=== PATIENT | female | born 1985 | race Caucasian/White ===

== ENCOUNTER 2019-12-30 08:55 | Emergency (ER) | payer OTHER, SELFPAY ==
--- NOTE | ~2019-12-30 | CT_ITS ---
EXAMINATION: CT cervical spine wo con DATE: 12/30/2019 09:54 INDICATION: Acute onset severe neck pain TECHNIQUE: Computed tomography (CT) of the cervical spine was performed without intravenous contrast. The dose-length product (DLP) was 384.35 mGy-cm. Automated exposure control and iterative reconstruc tion technique were employed. COMPARISON: None FINDINGS: There is straightening of the cervical spine which can be positional or due to muscular spa sm. There is no fracture, dislocation, or subluxation. The vertebral body heights, alignment, interve rtebral disc spaces are normal. The odontoid is intact. The prevertebral soft tissues are normal. The re are greater than normal number of nonpathologically enlarged cervical lymph nodes. IMPRESSION: 1. No acute osseous abnormality. 2. Greater than normal number of nonpathologically enlarged cervical lymph nodes, possibly reactive. Reviewed, dictated and finalized at location B. IMPRESSION: 1. No acute osseous abnormality. 2. Greater than normal number of nonpathologically enlarged cervical lymph node s, possibly reactive.
[2019-12-30 09:14] VITALS: BP 162/100; PULSE 85; RESP 18; TEMP 36.5; O2SAT 98
--- NOTE | 2019-12-30 09:27 | ED.NECK ---
HPI - Neck Pain/Injury General Chief Complaint: Neck Pain/Injury Stated Complaint: NECK POPPED PAIN Time Seen by Provider: 12/30/19 09:27 Source: patient Mode of arrival: ambulatory Limitations: no limitations History of Present Illness HPI Narrative: 34-year-old woman comes in today complaining of severe left-sided neck pain that started this morning after she woke. She states that she stretched an arched her back and she felt a pop and developed severe pain. She states she has pain when she moves her left arm especially and when she moves her neck. She denies any numbness, tingling, weakness, incontinence, lower extremity symptoms and prior injury or surgery. complaint: neck pain Onset (ago): hour(s) (3) Place: home Radiation: left lateral Severity: severe Quality: sharp Duration: constant Relieving factors: none Exacerbating factors: movement of extremity and movement of neck Context: turning/bending Treatments prior to arrival: acetaminophen Related Data Allergies Allergy/AdvReac Type Severity Reaction Status Date / Time No Known Allergies Allergy Verified 12/30/19 09:14 Review of Systems Constitutional: Constitutional: Denies chills and Denies fever(s) Eyes: Eyes: Denies change in vision and Denies photophobia ENT: Denies dysphagia, Denies nasal congestion and Denies sore throat Cardiovascular: Cardiovascular: Denies chest pain and Denies radiating jaw, neck or arm pain Respiratory: Respiratory: Denies cough and Denies dyspnea Gastrointestinal: Gastrointestinal: Denies abdominal pain, Denies diarrhea and Denies vomiting Genitourinary: Genitourinary: Denies nocturia, Denies dysuria and Denies urinary incontinence Musculoskeletal: Musculoskeletal: Denies arthralgias and Denies joint swelling Neurologic: Denies vertigo, Denies dizziness and Denies syncope Endocrine: Endocrine: Denies polydipsia and Denies polyuria Hematologic/Lymphatic: Hematologic/Lymphatic: Denies easy bleeding and Denies easy bruising Allergic/Immunologic: Allergic/Immunologic: Denies lip swelling and Denies wheezing PMFSH Surgical History Surgical History H/O section H/O tubal ligation Social History Social History Smoking status: Never smoker Substance use: never Living arrangements: with family Additional occupation/education comments: [employer] Exam HENMT: Head: normal to inspection Ears: external ears normal, TM's normal bilaterally and EAC's normal Face and sinus: normal facial exam Mouth: Yes moist mucous membranes Throat: posterior oropharynx normal Other: Mod-severe acute distress Eyes: Conjunctivae: conjunctivae normal Pupils: Equal, round and reactive pupils present EOM: EOMs intact bilaterally Neck: Neck: normal visual inspection and no lymphadenopathy Other: Tenderness with palpation of the belly of the left trapezius and its cervical insertion. There is mild midline tenderness. Patient will not voluntarily move her neck. No abnormal contours, swelling or erythema. 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 Distal neurovascular exam is intact. Extrem: General: normal to inspection and no clubbing, cyanosis or edema Psych: Appearance: grossly normal and well kempt Mental Status: mental status grossly normal Affect: Anxious affect present Attitude: cooperative Thought content: Yes Normal thought content present Course Vital Signs Vi
[2019-12-30] MEDS: KETOROLAC (*BKC) 60 MG/2 ML VIAL IM (09:45)
[2019-12-30 10:32] VITALS: BP 127/86; PULSE 83; RESP 20; TEMP 36.4; O2SAT 99
== END 2019-12-30 10:36 | disposition home or self-care (01) ==
PROVIDERS: Emergency Provider Emergency Medicine; PCP Family Medicine
DX: S16.1XXA Strain of muscle, fascia and tendon at neck level, initial encounter (principal); X50.9XXA Other and unspecified overexertion or strenuous movements or postures, initial encounter
CPT/HCPCS: 72125; 96372; 99283; 99284; A9270; J1885

== ENCOUNTER 2021-12-03 03:40 | Observation (INO) | payer OTHER, SELFPAY ==
[2021-12-03] VITALS (9 sets, daily range): BP systolic 107–139; BP diastolic 67–99; PULSE 64–100; RESP 16–20; TEMP 35.5–36.7; O2SAT 96–100
--- NOTE | ~2021-12-03 | CT_ITS ---
EXAMINATION: CT soft tissue neck w con DATE: 12/03/2021 04:39 INDICATION: Facial pain, possible dental abscess, recent wisdom tooth extraction TECHNIQUE: Computed tomography (CT) of the neck was performed with 75 cc of Omnipaque 350 intravenous contrast. The dose-length product (DLP) was 667.57 mGy-cm. Automated exposure control and iterative reconstruction technique were employed. COMPARISON: None FINDINGS: There is a small amount of mildly high attenuation fluid in the right sequins slinger, right par apharyngeal, and right submandibular spaces. No definite abscess is identified. There is mild to mode rate mass effect on the airway in the oropharynx and hypopharynx. There is mild enlargement of the ri ght submandibular gland. The visualized osseous structures are unremarkable. There is mild dependent atelectasis of the lungs. IMPRESSION: 1. Mildly high attenuation fluid in the right sequins slinger, parapharyngeal, and submandibular spaces wi thout discrete abscess identified. Findings could reflect phlegmon or other inflammatory change relat ed to recent wisdom tooth extraction. Recommend close monitoring due to mild to moderate mass effect on the airway. These findings and recommendations were communicated to the Emergency Department at 0703 hours on 11/21 by the [employer] Radiologist. Reviewed, dictated and finalized at location A. IMPRESSION: 1. Mildly high attenuation fluid in the right sequins slinger, parapharyngeal, and s ubmandibular spaces without discrete abscess identified. Findings could reflect phlegmon or other inflammatory change related to recent wisdom tooth extractio n. Recommend close monitoring due to mild to moderate mass effect on the airway . These findings and recommendations were communicated to the Emergency Departmen t at 0703 hours on 12/03/2021 by the [employer] Radiologist.
--- NOTE | 2021-12-03 03:49 | ED.DENTAL ---
HPI - Dental/Oral General Chief complaint: Upper Respiratory Infection <Rafa Olson MD - Last Filed: 12/06/21 10:17> Stated complaint: PAIN <Rafa Olson MD - Last Filed: 12/06/21 10:17> Time Seen by Provider: 12/03/21 07:20 <Rafa Olson MD - Last Filed: 12/06/21 10:17> Source: patient and RN notes reviewed <Rafa Olson MD - Last Filed: 12/06/21 10:17> Mode of arrival: ambulatory <Rafa Olson MD - Last Filed: 12/06/21 10:17> Limitations: no limitations <Rafa Olson MD - Last Filed: 12/06/21 10:17> History of Present Illness MD Complaint: tooth pain <Rafa Olson MD - Last Filed: 12/06/21 10:17> Onset (ago): day(s) (1) <Rafa Olson MD - Last Filed: 12/06/21 10:17> Duration: constant <Rafa Olson MD - Last Filed: 12/06/21 10:17> Severity: severe <Rafa Olson MD - Last Filed: 12/06/21 10:17> Relieving factors: nothing <Rafa Olson MD - Last Filed: 12/06/21 10:17> Exacerbating factors: chewing, drinking fluids and swallowing <Rafa Olson MD - Last Filed: 12/06/21 10:17> Context: other ( recent extraction) <Rafa Olson MD - Last Filed: 12/06/21 10:17> Associated symptoms: gum swelling, pain with swallowing and sore throat <Rafa Olson MD - Last Filed: 12/06/21 10:17> Treatment prior to arrival: other ( amoxicillin 2 doses) <Rafa Olson MD - Last Filed: 12/06/21 10:17> Related Data Allergies/adverse reactions: Allergies Allergy/AdvReac Type Severity Reaction Status Date / Time No Known Allergies Allergy Verified 12/03/21 03:44 <Rafa Olson MD - Last Filed: 12/06/21 10:17> Review of Systems Review of Systems: All systems reviewed & are unremarkable except as noted in HPI and below <Rafa Olson MD - Last Filed: 12/06/21 10:17> PMFSH Surgical History Surgical History: Surgical History H/O section H/O tubal ligation <Rafa Olson MD - Last Filed: 12/06/21 10:17> Social History Social History: Social History Smoking status: Never smoker Second hand tobacco smoke exposure: No Alcohol intake: never Substance use: never Substance use type: does not use Additional occupation/education comments: [employer] Gender identity (if verbalized by the patient): Female Sexual Orientation (if Verbalized by the Patient): Straight or Heterosexual Spiritual care concerns: No <Rafa Olson MD - Last Filed: 12/06/21 10:17> Exam Const: General: no acute distress, alert and ill appearing acutely <Rafa Olson MD - Last Filed: 12/06/21 10:17> Nutritional Appearance: well nourished <Rafa Olson MD - Last Filed: 12/06/21 10:17> Orientation/consciousness: patient oriented x3 <Rafa Olson MD - Last Filed: 12/06/21 10:17> Limitations: no limitations <Rafa Olson MD - Last Filed: 12/06/21 10:17> HENMT: Head: normal to inspection, normocephalic and atraumatic <Rafa Olson MD - Last Filed: 12/06/21 10:17> Ears: external ears normal <Rafa Olson MD - Last Filed: 12/06/21 10:17> General nose exam: Normal external nose present <Rafa Olson MD - Last Filed: 12/06/21 10:17> Mouth: Yes moist mucous membranes abnormal and Yes trismus <Rafa Olson MD - Last Filed: 12/06/21 10:17> Throat: posterior oropharynx abnormal edema (right) and erythema, uvula laterally displaced to the right and uvular edema <Rafa Olson MD - Last Filed: 12/06/21 10:17> Eyes: Conjunctivae: conjunctivae normal <MD Esvin Knight Last Filed: 12/06/21 10:17> Pupils: Equal, round and reactive pupils present <Rafa Olson MD - Last Filed: 12/06/21 10:17> EOM: EOMs intact bilaterally <Rafa Olson MD - Last Filed: 12/06/21 10:17> Neck: Neck: normal visual inspection and no lymphadenopathy <Rafa Olson MD - Last
[2021-12-03 04:07] LABS: Basophils Absolute Auto 0.04 K/mm3 (0.00-0.10); Basophils Percent Auto 0.3 % (0.0-1.0); Eosinophils Absolute Auto 0.07 K/mm3 (0.02-0.50); Eosinophils Percent Auto 0.6 % (1.0-6.0); Hematocrit 36.5 % (35.0-49.0); Hemoglobin 12.5 g/dL (12.0-15.0); Immature Granulocyte Absolute 0.03 K/mm3 (0.00-0.00); Immature Granulocyte Percent A 0.2 % (0.0-0.0); Lymphocytes Absolute Auto 1.84 K/mm3 (1.10-4.50); Lymphocytes Percent Auto 14.7 % (18.0-42.0); Mean Corpuscular HGB Conc 34.2 g/dL (32.0-36.0); Mean Corpuscular Hemoglobin 29.7 pg (27.0-31.0); Mean Corpuscular Volume 86.7 fL (78.0-102.0); Mean Platelet Volume 10.9 fl (9.2-11.8); Monocytes Absolute Auto 0.63 K/mm3 (0.10-0.90); Neutrophils Absolute Auto 9.9 K/mm3 (1.7-7.2); Neutrophils Percent Auto 79.2 % (50.0-70.0); Platelet Count Result 198 K/mm3 (150-420); Red Blood Count 4.21 M/mm3 (4.20-5.40); Red Cell Distribution Width 12.8 % (11.6-14.4); White Blood Count 12.6 K/mm3 (4.8-10.8)
[2021-12-03] MEDS: KETOROLAC 15 MG/ML VIAL (*BKC) IV PUSH (04:17)
[2021-12-03 04:18] LABS: SPREG INTERNAL CONTROL Positive; Serum Qual hCG Negative
[2021-12-03 04:24] LABS: Alanine Aminotransferase 16 U/L (14-59); Albumin Level 3.6 g/dL (3.4-5.0); Alkaline Phosphatase 93 U/L (46-116); Anion Gap 11 mmol/L (8-16); Aspartate Amino Transferase 11 U/L (15-37); Bilirubin,Total 0.5 mg/dL (0.00-1.00); Blood Urea Nitrogen 14 mg/dL (7-18); Calcium 8.8 mg/dL (8.5-10.1); Carbon Dioxide 22 mmol/L (21-32); Chloride 104 mmol/L (98-108); Estimated CRCL calculation 112 ml/min; Estimated Glomerular Filt Rate > 60; Glucose 107 mg/dL (70-99); Osmolality Calculated 284 mOsm/kg (285-295); Potassium 3.6 mmol/L (3.5-5.1); Sodium 137 mmol/L (136-145); Total Protein 7.4 g/dL (6.4-8.2)
--- NOTE | 2021-12-03 04:30 | PC.NURSE ---
PT IN CT AT THIS TIME, SIG OTHER AT BEDSIDE
[2021-12-03] MEDS: AMPICILLIN SULB 3 GM/NS 100 ML 3 GM/100 ML VIAL IVPB (05:44)
--- NOTE | 2021-12-03 05:56 | PC.NURSE ---
PT IS RESTING ON STRETCHER WITH SIG OTHER AT BEDSIDE. IV MEDICATION INFUSING ORDERED WITHOUT DIFFICULTY. PT CONTINUES TO AWAIT CT RESULTS. UNABLE TO CHART MEDICATION ADMINISTRATION AT THIS TIME DUE TO COMPUTER ERROR. WILL CONTINUE TO MONITOR.
--- NOTE | 2021-12-03 06:36 | PC.NURSE ---
PT IS RESTING ON STRETCHER IN EXAM ROOM AT THIS TIME. NAD NOTED. PT CONTINUES TO AWAIT CT RESULTS. SIG OTHER AT BEDSIDE. WILL CONTINUE TO MONITOR.
--- NOTE | 2021-12-03 07:04 | PC.NURSE ---
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 HE HAS CALLED TO CHECK STATUS. PT UP TO RR WITHOUT DISTRESS. WARM BLANKET PROVIDED. VSS PER MONITOR. NAD NOTED. SIG OTHER AT BEDSIDE. REPORT TO TERE HOWARD.
--- NOTE | 2021-12-03 07:50 | PC.NURSE ---
0740 calls placed for ENT [facility] WILL CALL BACK
[2021-12-03] MEDS: fentaNYL CITRATE INJ (*CRX) 100 MCG/2 ML VIAL 50 MCG IV PUSH (07:55)
[2021-12-03] MEDS: methylPREDNISolone SOD SUCC 125 MG VIAL (08:55)
[2021-12-03] MEDS: ONDANSETRON INJ 4 MG/2 ML VIAL IV PUSH ×2 (08:58→18:39)
[2021-12-03] MEDS: methylPREDNISolone SOD SUCC 40 MG VIAL 80 MG IV PUSH ×3 (12:34→17:59)
[2021-12-03] MEDS: HYDROcodone/acetaminophen (*CRX) 10-325 MG TABLET 1 TAB PO ×2 (14:05→20:17)
[2021-12-03] MEDS: LORazepam INJ (*CRX) 2 MG/ML VIAL 0.5 MG IV PUSH (14:07)
[2021-12-03] MEDS: CLINDAMYCIN 600 MG/D5W 50 ML 600 MG/50 ML PIGGYBACK 100 MG IVPB ×2 (14:20→21:14)
--- NOTE | 2021-12-03 14:35 | PC.NURSE ---
Pt admitted to room 202 from the ER. Admitted for abcessed right wisdom tooth. VSS. Right side of pt face and neck are swollen and painful. RN reviewed the visitor policy, call light system and TV control with pt.
[2021-12-03] MEDS: traZODone HCL 50 MG TABLET PO (21:14)
--- NOTE | 2021-12-03 23:45 | PC.NURSE ---
Pt education done on pain management. Medications such as the Hydrocodone were discussed on the use and risks w/taking an opioid. Pt verbalized understanding on the medication topic. Factors that causes the pain were also discussed. Factors including her recent wisdom tooth removal and infection present. Goals on managing the pain w/the pain medication and also relaxation techniques were discussed to which pt verbalized understanding.
--- NOTE | 2021-12-04 00:56 | PM.SD2 ---
Same Day Admit/Disch: HPI History of Present Illness Chief complaint: PAIN Narrative: Raisa Broderick is a 36 year old female that presented to our emergency department with complaints of mild pain. Patient does not have any significant medical history. According to patient she had her right lower wisdom tooth extracted on 11/29/2021. Patient has been experience pain since yesterday. She was started on Augmentin yesterday. While in ED patient was given Unasyn and Toradol with little relief she is being admitted today for pain control. Vital signs 124/76, 64, 17, 97.5, 96% on room air WBCs 12.6, hemoglobin 12.5, hematocrit 36.5, platelets 198, sodium 137, potassium 3.6, BUN 14, creatinine 0.60, glucose 107, total bili 0.5, AST 11, ALT 16, CT of the neck indicates Mildly high attenuation fluid in the right citrix administrator, parapharyngeal, and submandibular spaces. Patient will discharge today and follow-up with her dentist after completion of her antibiotic. Patient pain is better controlled PMFSH Surgical History Surgical History H/O section H/O tubal ligation Social History Social History Smoking status: Never smoker Second hand tobacco smoke exposure: No Alcohol intake: never Substance use: never Substance use type: does not use Additional occupation/education comments: [employer] Gender identity (if verbalized by the patient): Female Sexual Orientation (if Verbalized by the Patient): Straight or Heterosexual Spiritual care concerns: No Same Day Admit/Disch: Med Pre-admit Medications Home Medications Medication Instructions Recorded Confirmed Type hydrocodone 5 mg-acetaminophen 325 1 tablet PO Q6H PRN pain #15 tabs 12/30/19 12/03/21 Rx mg tablet ([place]) amoxicillin 500 mg capsule 500 mg PO TID 12/03/21 12/03/21 History amoxicillin 500 mg-potassium 1 tablet PO TID 10 days #30 tabs 12/04/21 Rx clavulanate 125 mg tablet (Augmentin) ibuprofen 800 mg tablet 800 mg PO Q6H PRN pain #60 tabs 12/04/21 Rx Exam Narrative: GENERAL: This is a well-nourished, well-developed patient, in no apparent distress. HEAD: normocephalic, atraumatic. EYES: PERRL. Sclera clear/white. Vision is grossly intact. EARS: External ears normal, auditory canals clear and without drainage, TMs normal without perforation. Hearing grossly intact. NOSE: External nose normal with no obvious nasal discharge, nares without redness, no rhinorrhea. THROAT: Edema with erythema to the submandibular NECK: Neck supple, non-tender without lymphadenopathy, masses or thyromegaly. CARDIOVASCULAR: Regular rate and rhythm without murmurs, gallops, or rubs. RESPIRATORY: Clear to auscultation. Breath sounds equal bilaterally. No wheezes, rales, or rhonchi. GASTROINTESTINAL: Abdomen soft, non-tender, nondistended. Bowel sounds are active. No hepato-splenomegaly, or palpable masses. No guarding. SKIN: warm, intact with no suspicious lesions or rash, good texture and turgor. NEURO: awake, alert, and oriented to person, place and time. There were no obvious focal neurologic abnormalities. Steady gait EXTREMITIES: Normal range of motion. No edema. No calf tenderness. Negative Homans sign bilaterally. BACK: Nontender without deformity or crepitance. No flank tenderness. DS: Data Data Completed and Pending Labs on day of discharge: Labs from last 24 hours 12/03/21 12/03/21 12/03/21 04:04 04:04 04:04 WBC 12.6 H RBC 4.21 Hgb 12.5 Hct 36.5 MCV 86.7 MCH 29.7 MCHC 34.2 RDW 12.8 Plt Count 198 MPV 10.9 Immature Gran % (Auto) 0.2 H Neut % (Auto) 79.2 H Lymph % (Auto) 14.7 L [place] % (Auto) 5.0 Eos % (Auto) 0.6 L Baso % (Auto) 0.3 Lymph # (Auto) 1.84 [place] # (Auto) 0.63 Eos # (Auto) 0.07 Baso # (Auto) 0.04 Abs Immat Gran (auto) 0.03 H Absolute Neuts (auto) 9.9 H Absolut
--- NOTE | 2021-12-04 05:10 | PC.NURSE ---
Spoke with Darling Conroy PROPULSION MACHINERY SERVICE ENGINEER to clarify strep screen POC measurement order. Clarification order received.
[2021-12-04 06:12] LABS: Strep Group A RT-PCR Negative (Negative)
[2021-12-04] MEDS: CLINDAMYCIN 600 MG/D5W 50 ML 600 MG/50 ML PIGGYBACK 100 MG IVPB (06:12)
[2021-12-04] MEDS: HYDROcodone/acetaminophen (*CRX) 10-325 MG TABLET 1 TAB PO (06:13)
[2021-12-04 08:00] VITALS: BP 114/63; PULSE 69; RESP 16; TEMP 36.4; O2SAT 97
[2021-12-04] MEDS: methylPREDNISolone SOD SUCC 40 MG VIAL 80 MG IV PUSH (09:18)
--- NOTE | 2021-12-04 10:39 | PC.NURSE ---
Pt discharged to home with vss. Pt instructed regarding medications, S&S of worsening infection, follow up appointments with doctor and dentist. Pt verbalized understanding of instructions. Pt taken to family car via WC and assisted into the car.
--- NOTE | 2021-12-05 15:46 | PC.NURSE ---
Invalid phone number for discharge call back.
== END 2021-12-04 09:30 | disposition home or self-care (01) ==
LOC: CHSED 08:54 → CHS2ND 09:09
PROVIDERS: Emergency Medicine; Admitting Provider Internal Medicine; Emergency Provider Emergency Medicine; PCP Family Medicine; Visit Provider Internal Medicine
DX: K04.7 Periapical abscess without sinus (principal); K08.89 Other specified disorders of teeth and supporting structures
CPT/HCPCS: 36415; 70491; 80053; 84703; 85025; 87651; 96365; 96366; 96367; 96375; 96376; 99285; A9270; G0378; J0295; J1885; J2060; J2405; J2920; J2930; J3010; Q9967

== ENCOUNTER 2021-12-19 16:57 | Emergency (ER) | payer OTHER, SELFPAY ==
[2021-12-19 17:06] VITALS: BP 137/97; PULSE 108; RESP 16; TEMP 36.3; O2SAT 99
--- NOTE | 2021-12-19 17:57 | ED.DENTAL ---
HPI - Dental/Oral General Chief complaint: Dental/Oral Stated complaint: tonsil abscess sent by PCP Time Seen by Provider: 12/19/21 17:46 Source: patient Mode of arrival: ambulatory Limitations: no limitations History of Present Illness HPI Narrative: This is a 36 year old female that presents to the ER for sore throat noted over the last couple of weeks. Reports she was seen at [facility] for this and was hospitalized for IV antibiotics. She has continued oral antibiotics for the last couple of weeks with little relief. Denies fever or difficulty swallowing. Related Data Allergies Allergy/AdvReac Type Severity Reaction Status Date / Time No Known Allergies Allergy Verified 12/03/21 03:44 Review of Systems Review of Systems: CONSTITUTIONAL: Denies fever ENT: Reports sore throat All systems reviewed & are unremarkable except as noted in HPI and below PMFSH Past Medical History Medical History (Updated 12/19/21 @ 18:02 by Zoila Garcia PA-C) No active medical problems Surgical History Surgical History H/O section H/O tubal ligation Social History Social History Smoking status: Never smoker Second hand tobacco smoke exposure: No Alcohol intake: never Substance use: never Substance use type: does not use Additional occupation/education comments: [employer] Gender identity (if verbalized by the patient): Female Sexual Orientation (if Verbalized by the Patient): Straight or Heterosexual Spiritual care concerns: No Exam Narrative: GENERAL: Well-appearing, well-nourished, and in no acute distress. HEAD: Normocephalic, atraumatic. EYES: EOMI. ENT: Nares clear, no rhinorrhea or epistaxis. Mucous membranes moist. Oropharynx with asymmetric tonsillar hypertrophy R>L. Uvula is deviated NECK: Supple. No adenopathy or masses. CHEST: No respiratory distress. HEART: Regular rate EXTREMITIES: Normal range of motion. No edema. SKIN: Warm, dry, no rash. NEURO: No focal deficits. Alert and oriented x3. PSYCH: Normal mood and affect Course Vital Signs Vital signs: Vital Signs Temperature 97.3 F L 12/19/21 17:06 Pulse Rate 108 H 12/19/21 17:06 Respiratory Rate 16 12/19/21 17:06 Blood Pressure 137/97 H 12/19/21 17:06 Pulse Oximetry 99 12/19/21 17:06 Oxygen Delivery Room Air 12/19/21 17:06 Temperature 97.3 F L 12/19/21 17:06 Pulse Rate 108 H 12/19/21 17:06 Respiratory Rate 16 12/19/21 17:06 Blood Pressure 137/97 H 12/19/21 17:06 Pulse Oximetry 99 12/19/21 17:06 Oxygen Delivery Room Air 12/19/21 17:06 MDM - Dental/Oral MDM Narrative Medical decision making narrative: Patient presents to the emergency department for a peritonsillar abscess. Patient is afebrile and nontoxic-appearing. Patient was evaluated at bedside by Dr. Muir. Abscess successfully drained. This will be sent for a culture. Patient will be continued on oral antibiotics and will have follow-up with ENT. She was given warnings to return to the ER Critical Care Time Critical Care Time Critical Care Time: No Discharge Plan Discharge Clinical Impression: Abscess, peritonsillar Patient Disposition: Home, Self-Care Condition: Stable Instructions: Antibiotic Form, Peritonsillar Abscess (ED) Additional Instructions: Return if symptoms worsen or concerns: any increase in redness, swelling, pain or fever over 101 Take antibiotics as directed. Follow up with ENT, Dr. Muir Prescriptions: New clindamycin HCl 300 mg capsule 300 mg PO Q8H 10 Days Qty: 30 0RF methylprednisolone [Medrol (Vic)] 4 mg tablets,dose pack See Rx Instructions .ROUTE .COMPLEX Qty: 21 0RF Rx Instructions: orally per package directions No Action hydrocodone-acetaminophen [[place]] 5-325 mg tablet 1 tablet PO Q6H PRN (Reason: pain) Qty: 15 0RF amoxicill
--- NOTE | 2021-12-19 18:08 | WPDPROCEDUR ---
Procedures Abscess I/D Comments: Incision and drainage of right linda tonsillar abscess. Verbal consent obtained. area sprayed with cetacaine. 1cc one percent lidocaine with 1:100,000 parts epi injected around the peritonsillar region. 11 blade utilized to incise mucosa. curved hemostat utilized to open the peritonsillar space. Copious purulence encountered. Culture obtained. Patient tolerated the procedure well.
--- NOTE | 2021-12-19 18:11 | WPDCN ---
Assessment and Plan Assessment and plan (1) Abscess, peritonsillar: Code(s): J36 - Peritonsillar abscess Status: Acute Assessment and Plan: I and D successful. DC on clinda 300mg tid for 10 days, medrol dose vic, please order culture, pt to follow up with me to discuss tonsillectomy, thank you. HPI Data of Consult Date/Time: 12/19/21 18:11 Primary Care Provider: Tye Conroy M.D. Consult Narrative Narrative: Raisa Broderick is a 36 year old female with a sore throat for the past two weeks. 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 Pt has been on augmentin since. Multiple sore throats in the past 4 months. Review of Systems Review of Systems: All systems reviewed & are unremarkable except as noted in HPI and below PMFSH Past Medical History Medical History (Updated 12/19/21 @ 18:02 by Zoila Garcia PA-C) No active medical problems Surgical History Surgical History H/O section H/O tubal ligation Social History Social History Smoking status: Never smoker Second hand tobacco smoke exposure: No Alcohol intake: never Substance use: never Substance use type: does not use Additional occupation/education comments: [employer] Gender identity (if verbalized by the patient): Female Sexual Orientation (if Verbalized by the Patient): Straight or Heterosexual Spiritual care concerns: No Meds Home Medications and Allergies Home Medications Medication Instructions Recorded Confirmed Type hydrocodone 5 mg-acetaminophen 325 1 tablet PO Q6H PRN pain #15 tabs 12/30/19 12/03/21 Rx mg tablet ([place]) amoxicillin 500 mg-potassium 1 tablet PO TID 10 days #30 tabs 12/04/21 Rx clavulanate 125 mg tablet (Augmentin) ibuprofen 800 mg tablet 800 mg PO Q6H PRN pain #60 tabs 12/04/21 Rx methylprednisolone 4 mg tablets in 4 mg PO DAILY #21 ea 12/04/21 Rx a dose pack (Medrol (Vic)) clindamycin HCl 300 mg capsule 300 mg PO Q8H 10 days #30 caps 12/19/21 Rx methylprednisolone 4 mg tablets in See Rx Instructions PO .COMPLEX 12/19/21 Rx a dose pack (Medrol (Vic)) #21 ea Allergies Allergy/AdvReac Type Severity Reaction Status Date / Time No Known Allergies Allergy Verified 12/03/21 03:44 Vital Signs Vital Signs - 24 hr 12/19/21 17:06 Temperature 36.3 C L Pulse Rate 108 H Respiratory Rate 16 Blood Pressure 137/97 H Pulse Oximetry 99 Oxygen Delivery Room Air Exam Narrative: Normal ent exam, right peritonsillar abscess, opened, see procedure note
[2021-12-19 18:47] VITALS: BP 138/86; PULSE 86; RESP 16; O2SAT 98
[2021-12-19] MEDS: CLINDAMYCIN HCL 150 MG CAP 300 MG PO (19:59)
== END 2021-12-19 20:20 | disposition home or self-care (01) ==
PROVIDERS: Emergency Provider Emergency Medicine; PCP Family Medicine
DX: J36 Peritonsillar abscess (principal)
CPT/HCPCS: 42700; 87070; 87077; 87205; 99283; A9270

== ENCOUNTER 2022-04-11 15:44 | Emergency (ER) | payer OTHER, SELFPAY ==
[2022-04-11] VITALS (20 sets, daily range): BP systolic 126–144; BP diastolic 78–105; PULSE 92–112; RESP 18–22; TEMP 36.4; O2SAT 94–100
--- NOTE | ~2022-04-11 | CT_ITS ---
EXAMINATION: CT abdomen pelvis w con DATE: 04/11/2022 19:17 INDICATION: Right lower quadrant abdominal pain since last night. Nausea, vomiting and diarrhea. Hist ory of pancreatitis. TECHNIQUE: Computed tomography (CT) of the abdomen and pelvis was performed with 100 CC Omnipaque 350 intravenous contrast. Automated exposure control and iterative reconstruction technique were employe d. Exam dose: 797.06 mGy-cm total exam DLP. COMPARISON: None. FINDINGS: The lung bases are clear of infiltrate or consolidation. Normal heart size. No pericardial or pleural effusion. Nonspecific approximately 8 mm mass is suggested in the lower outer quadrant of the right breast. Rec ommend correlation with clinical examination consideration for possible mammography or ultrasound exa mination. 4.7 mm probable peripheral cyst of medial segment of left hepatic lobe. The liver is otherwise unrema rkable. The gallbladder is distended. No gallbladder wall thickening or pericholecystic fluid or fat stranding. No bile duct or pancreatic duct dilatation is detected. No pancreatic mass lesion or calci fication. Normal splenic size. Normal morphology of the adrenal glands. No renal mass lesion or urinary tract calculus or hydroureteronephrosis. Normal caliber of the abdominal aorta. No intraperitoneal or retroperitoneal or pelvic mass lesion or adenopathy or ascites. The urinary bladder, uterus and left ovary are unremarkable. There is asymmetric enlargement of the right ovary measures approximately 2.6 x 2.8 cm compared to le ft ovarian measurement of 1.6 x 2.6 cm. Consider right ovarian complicated or hemorrhagic cyst, right ovarian torsion right ovarian neoplasm. Pelvic ultrasound correlation is recommended. Normal appendix. No bowel obstruction or intraperitoneal free air. Small fat-containing umbilical hernia. Included skeletal structures are unremarkable. IMPRESSION: Asymmetric right ovarian enlargement; differential diagnosis is given above, including K right ovarian cyst, right ovarian torsion, right ovarian neoplasm. Pelvic ultrasound correlation is recommended. 8 mm soft tissue density of lower outer right breast; consider mammographic or ultrasound correlation Small hepatic cyst Normal appendix Reviewed, dictated and finalized at [facility]. Reviewed, dictated and finalized at [facility]. ND WORKER IMPRESSION: Asymmetric right ovarian enlargement; differential diagnosis is gi master above, including K right ovarian cyst, right ovarian torsion, right ovarian neoplasm. Pelvic ultrasound correlation is recommended. 8 mm soft tissue density of lower outer right breast; consider mammographic or ultrasound correlation Small hepatic cyst Normal appendix
--- NOTE | 2022-04-11 16:39 | ED.ABDPAIN ---
HPI - Abdominal Pain General Chief Complaint: Abdominal Pain Stated Complaint: pancreas problems Source: patient Mode of arrival: ambulatory Limitations: no limitations History of Present Illness HPI narrative: 36-year-old female with a history of pancreatitis presents to the ER with a 1 day history of -- right lower quadrant abdominal pain. The pain is continuous. No fever. No exacerbating or relieving factors. -- Nausea with multiple episodes of vomiting and multiple episodes of diarrhea. -- Anxiety attack status post BTL MD elicited complaint: abdominal pain Onset (ago): day(s) ( started last night) Pain Consistency: constant Location: none Severity: moderate Radiation: none Migration to: no migration Exacerbating factors: nothing Relieving factors: nothing Associated symptoms: nausea, vomiting and diarrhea Related Data Home Medications Medication Instructions Recorded Confirmed No Home Medications 04/11/22 04/11/22 Allergies Allergy/AdvReac Type Severity Reaction Status Date / Time No Known Allergies Allergy Verified 04/11/22 16:10 Review of Systems Review of Systems: All systems reviewed & are unremarkable except as noted in HPI and below Constitutional: Constitutional: Reports as per HPI and Reports no additional constitutional complaints Eyes: Eyes: Reports as per HPI and Reports no additional eye complaints ENT: Reports system reviewed and no additional complaints, except as documented and Reports as per HPI Cardiovascular: Cardiovascular: Reports as per HPI and Reports no additional cardiovascular complaints Respiratory: Respiratory: Reports as per HPI and Reports no additional respiratory complaints Gastrointestinal: Gastrointestinal: Reports as per HPI, Reports no additional gastrointestinal complaints, Reports abdominal pain, Reports diarrhea, Reports nausea and Reports vomiting Genitourinary: Genitourinary: Reports no additional female genitourinary complaints and Reports as per HPI Musculoskeletal: Musculoskeletal: Reports no additional musculoskeletal complaints and Reports as per HPI Integumentary/Breasts: Skin/Breast: Reports system reviewed and no additional complaints, except as docu and Reports as per HPI Neurologic: Reports system reviewed and no additional complaints, except as documented and Reports as per HPI Psychiatric: Psychiatric: Reports no additional psychiatric complaints, Reports as per HPI and Reports anxiety Comments: patient is currently having an anxiety attack. Endocrine: Endocrine: Reports no additional endocrine complaints and Reports as per HPI Hematologic/Lymphatic: Hematologic/Lymphatic: Reports no additional hematologic/lymphatic complaints Allergic/Immunologic: Allergic/Immunologic: Reports no additional allergic/immunologic complaints PMFSH Past Medical History Medical History No active medical problems Surgical History Surgical History H/O section H/O tubal ligation Social History Social History Smoking status: Never smoker Second hand tobacco smoke exposure: No Alcohol intake: never Substance use: never Substance use type: does not use Additional occupation/education comments: [employer] Gender identity (if verbalized by the patient): Female Sexual Orientation (if Verbalized by the Patient): Straight or Heterosexual Spiritual care concerns: No Exam Const: General: ill appearing Nutritional Appearance: well nourished Orientation/consciousness: patient oriented x3 Limitations: no limitations HENMT: Head: normal to inspection Ears: external ears normal Face/Nose/Sinus: Normal external nose present Face and sinus: normal facial exam Mouth: Yes Normal oral and palatal mucosa present Throat: posterior oropharynx normal Eyes: Conjunctivae: conju
[2022-04-11] MEDS: ONDANSETRON INJ 4 MG/2 ML VIAL IV PUSH (16:58)
[2022-04-11] MEDS: LACTATED RINGERS 1,000 ML 999 ML IV CONT ×2 (16:59→20:05)
[2022-04-11] MEDS: HYDROmorphone HCL INJ (*CRX) 2 MG/ML VIAL 0.5 MG IV PUSH (17:00)
--- NOTE | 2022-04-11 17:53 | PC.NURSE ---
LABS ARE BEING OBTAINED AT THIS TIME.
[2022-04-11 17:58] LABS: Basophils Absolute Auto 0.05 K/mm3 (0.00-0.10); Basophils Percent Auto 0.3 % (0.0-1.0); Eosinophils Absolute Auto 0.01 K/mm3 (0.02-0.50); Eosinophils Percent Auto 0.1 % (1.0-6.0); Hematocrit 39.1 % (35.0-49.0); Hemoglobin 12.7 g/dL (12.0-15.0); Immature Granulocyte Absolute 0.12 K/mm3 (0.00-0.00); Immature Granulocyte Percent A 0.7 % (0.0-0.0); Lymphocytes Absolute Auto 0.61 K/mm3 (1.10-4.50); Lymphocytes Percent Auto 3.8 % (18.0-42.0); Mean Corpuscular HGB Conc 32.5 g/dL (32.0-36.0); Mean Corpuscular Hemoglobin 28.1 pg (27.0-31.0); Mean Corpuscular Volume 86.5 fL (78.0-102.0); Mean Platelet Volume 10.9 fl (9.2-11.8); Monocytes Absolute Auto 0.63 K/mm3 (0.10-0.90); Monocytes Percent Auto 3.9 % (2.0-11.0); Neutrophils Absolute Auto 14.6 K/mm3 (1.7-7.2); Neutrophils Percent Auto 91.2 % (50.0-70.0); Platelet Count Result 187 K/mm3 (150-420); Red Blood Count 4.52 M/mm3 (4.20-5.40)
[2022-04-11 18:13] LABS: INR 1.2; Prothrombin Time 12.7 Seconds (9.50-12.10)
--- NOTE | 2022-04-11 18:18 | PC.NURSE ---
PT IS SLEEPING IN EXAM ROOM WITHOUT DISTRESS AT THIS TIME AWAITING RESULTS. WILL CONTINUE TO MONITOR.
[2022-04-11 18:20] LABS: Alanine Aminotransferase 24 U/L (14-59); Albumin Level 3.4 g/dL (3.4-5.0); Alkaline Phosphatase 91 U/L (46-116); Anion Gap 7 mmol/L (8-16); Aspartate Amino Transferase 18 U/L (15-37); Bilirubin,Total 0.5 mg/dL (0.00-1.00); Blood Urea Nitrogen 9 mg/dL (7-18); Calcium 8.6 mg/dL (8.5-10.1); Carbon Dioxide 25 mmol/L (21-32); Chloride 103 mmol/L (98-108); Estimated CRCL calculation 103 ml/min; Estimated Glomerular Filt Rate > 60; Glucose 106 mg/dL (70-99); Lipase 19 U/L (16-77); Magnesium 1.5 mg/dL (1.8-2.4); Osmolality Calculated 278 mOsm/kg (285-295); Potassium 3.7 mmol/L (3.5-5.1); Sodium 135 mmol/L (136-145); Total Protein 7.5 g/dL (6.4-8.2)
[2022-04-11 18:22] LABS: Troponin I < 4.0 ng/L (0.00-60.4)
[2022-04-11 18:22] LABS: Add Urine Microscopic? YES; Appearance Urine Clear (Clear); Bilirubin Urine Negative (Negative); Blood Urine Negative (Negative); Color Urine Light Yellow (Yellow); Glucose Urine UA Negative (Negative); Ketones Urine 3+ (Negative); Leukocyte Esterase Ur Negative LEU/UL (Negative); Nitrate Urine Negative (Negative); Protein Urine Negative (Negative); pH Urine 7.5 (5.0-8.0)
[2022-04-11 18:23] LABS: Lactic Acid Reflex 1.1 mmol/L (0.4-2.0)
[2022-04-11 18:28] LABS: RBC Urine 0-2 /hpf (0-2); Squamous Epithelial Cell Urine Few /hpf (Few); WBC Urine 0-3 /hpf (0-3)
[2022-04-11 18:29] LABS: Bacteria Urine Trace /hpf
[2022-04-11 18:37] LABS: Amphetamine Screen Urine Negative (Negative); Barbiturate Screen Urine Negative (Negative); Benzodiazepines Screen Urine Negative (Negative); Cannabinoid Screen Urine Positive (Negative); Cocaine Screen Urine Negative (Negative); Methadone Screen Urine Negative (Negative); Opiate Screen Urine Positive (Negative); Phencyclidine Screen Urine Negative (Negative)
--- NOTE | 2022-04-11 18:52 | PC.NURSE ---
PT REPORTING PAIN IS COMING BACK AT 10/30. ERP IS NOTIFIED AND MEDICATIONS TO BE GIVEN ORDERED. SIG OTHER AT BEDSIDE. PT IS AWAITING RESULTS AT THIS TIME. WILL CONTINUE TO MONITOR.
--- NOTE | 2022-04-11 19:14 | PC.NURSE ---
REPORT TO LEE TAI
[2022-04-11] MEDS: MAGNESIUM SULF 2 GM/WATER 50ML 2 GM/50 ML BAG IVPB (20:05)
[2022-04-11] MEDS: KETOROLAC 30 MG/ML VIAL (*BKC) IV PUSH (20:56)
[2022-04-11 22:24] LABS: SARS-CoV-2 RNA PCR Negative (Negative)
--- NOTE | 2022-04-11 23:12 | PC.NURSE ---
RN called for consult and possible transfer for pt within the [facility] system. Dr. Boo returned our call and states that if pt has a negative test pt can discharge and follow up outpatient. After confirming a negative , ERP states he will DC pt.
[2022-04-11 23:26] LABS: Pregnancy On Board Control Positive; Urine Pregnancy Test Negative
[2022-04-12 00:12] VITALS: BP 137/83; PULSE 94; RESP 20; TEMP 37; O2SAT 99
== END 2022-04-12 00:15 | disposition home or self-care (01) ==
PROVIDERS: Emergency Provider Internal Medicine Critical Care Medicine; PCP Family Medicine
DX: N83.8 Other noninflammatory disorders of ovary, fallopian tube and broad ligament (principal); E87.8 Other disorders of electrolyte and fluid balance, not elsewhere classified; R10.31 Right lower quadrant pain; Z20.822 Contact with and (suspected) exposure to COVID-19
CPT/HCPCS: 36415; 74177; 80053; 80307; 81001; 81025; 83605; 83690; 83735; 84484; 85025; 85610; 96361; 96365; 96375; 99284; J1170; J1885; J2405; J3475; J7120; Q9967; U0003; U0005

== ENCOUNTER 2022-10-30 14:44 | Emergency (ER) | payer OTHER, SELFPAY ==
[2022-10-30 14:45] VITALS: BP 123/87; PULSE 70; RESP 18; TEMP 36.4; O2SAT 98
--- NOTE | 2022-10-30 15:07 | ED.BACK ---
HPI - Back Pain/Injury General Chief Complaint: Back Pain/Injury Stated Complaint: back pain Time Seen by Provider: 10/30/22 15:07 History of Present Illness HPI Narrative: 37-year-old female patient is here with complaints of low back pain that started 2 days ago after she had a bout of cough. The pain is localized to the left lower back area and gets aggravated by any movement. She states that she feels better when she lies down. There is no radiation of pain down the leg there is no associated numbness or tingling of the lower extremities. There is no associated bowel or bladder dysfunction. The patient denies any other injuries. Patient has taken ibuprofen and Tylenol without much relief. She is generally in good health. She denies being at this time. Related Data Allergies Allergy/AdvReac Type Severity Reaction Status Date / Time No Known Allergies Allergy Verified 10/30/22 14:52 Review of Systems Review of Systems: All systems reviewed & are unremarkable except as noted in HPI and below PMFSH Past Medical History Medical History No active medical problems Surgical History Surgical History H/O section H/O tubal ligation Social History Social History Smoking status: Never smoker Second hand tobacco smoke exposure: No Alcohol intake: never Substance use: never Substance use type: does not use Living arrangements: with family Additional occupation/education comments: [employer] Gender identity (if verbalized by the patient): Female Sexual Orientation (if Verbalized by the Patient): Straight or Heterosexual Spiritual care concerns: No Exam Narrative: Alert female patient appears in [id number] distress especially when moving around. Vital signs are stable. HEENT appears acutely normal. Lungs are clear bilaterally. Heart tones are regular. Abdomen is soft and nontender. No tenderness on pelvic rock. Spine shows a normal curvature and there is tenderness over the left SI joint area as well as left gluteal area. Straight leg raising is bilaterally symmetrical and is about 30?. Distal neurovascular status of the lower extremities is intact. Neurologic exam grossly is normal. Mood and affect are normal. Course Course Emergency Course: The patient is feeling better after medications. Will ll discharge the patient home on Medrol Dosepak ketorolac and Robaxin Vital Signs Vital signs: Vital Signs Temperature 36.4 C L 10/30/22 14:45 Pulse Rate 70 10/30/22 14:45 Respiratory Rate 18 10/30/22 14:45 Blood Pressure 123/87 10/30/22 14:45 Pulse Oximetry 98 10/30/22 14:45 Oxygen Delivery Room Air 10/30/22 14:45 Temperature 36.4 C L 10/30/22 14:45 Pulse Rate 70 10/30/22 14:45 Respiratory Rate 18 10/30/22 14:45 Blood Pressure 123/87 10/30/22 14:45 Pulse Oximetry 98 10/30/22 14:45 Oxygen Delivery Room Air 10/30/22 14:45 MDM - Back Pain/Injury Differential Diagnosis Differential diagnosis: Likely lumbar radiculopathy, sciatica, strain of lumbar region and discitis Discharge Plan Discharge Clinical Impression: Acute low back pain Patient Disposition: Home, Self-Care Condition: Stable Instructions: Acute Low Back Pain (ED) Prescriptions: New ketorolac 10 mg tablet 10 mg PO TID PRN (Reason: pain) 5 Days Qty: 15 0RF methylprednisolone [Medrol (Vic)] 4 mg tablets,dose pack 4 mg PO DAILY Qty: 21 0RF methocarbamol 750 mg tablet 750 mg PO TID Qty: 15 0RF Follow-up/Referrals: Tye Conroy M.D. [Primary Care Provider] - Time of Disposition: 16:13
[2022-10-30] MEDS: methocarbamoL 750 MG TABLET PO (15:45)
[2022-10-30] MEDS: KETOROLAC (*BKC) 60 MG/2 ML VIAL IM (15:47)
[2022-10-30 16:10] VITALS: BP 131/88; PULSE 74; RESP 15; O2SAT 98
== END 2022-10-30 16:16 | disposition home or self-care (01) ==
PROVIDERS: Emergency Provider Emergency Medicine; PCP Family Medicine
DX: M54.50 Low back pain, unspecified (principal)
CPT/HCPCS: 96372; 99284; A9270; J1100; J1885

== ENCOUNTER 2023-06-29 11:03 | Emergency (ER) | payer OTHER, SELFPAY ==
--- NOTE | ~2023-06-29 | US_ITS ---
EXAMINATION: US venous doppler LE RT DATE: 06/29/2023 11:43 INDICATION: Right lower limb pain TECHNIQUE: Evans scale images without and with compression and Doppler images of the right lower extre mity veins were obtained. COMPARISON: None FINDINGS: The right common femoral vein, profunda femoral vein, femoral vein, popliteal vein, peronea l trunk, posterior tibial veins, and greater saphenous vein are patent. IMPRESSION: 1. Patent right lower extremity veins. No evidence of deep venous thrombosis. Reviewed, dictated and finalized at [facility]. E DIRECTOR
--- NOTE | ~2023-06-29 | XR_ITS ---
EXAMINATION: XR ankle RT min 3V INDICATION: Right ankle pain TECHNIQUE: Three views of the right ankle are obtained. COMPARISON: None available FINDINGS: No fracture, dislocation, or subluxation. The bones, soft tissues, and joint spaces are nor mal. IMPRESSION: 1. No acute osseous abnormality. Reviewed, dictated and finalized at location [facility]. HOE OPERATOR
--- NOTE | ~2023-06-29 | XR_ITS ---
EXAMINATION: XR foot RT min 3V DATE: 06/29/2023 11:44 INDICATION: Right foot pain TECHNIQUE: Dorsoplantar, lateral, and oblique views of the right foot were obtained. COMPARISON: None. FINDINGS: Bone alignment is normal. There is no fracture. There is lateral soft tissue swelling of th e foot. IMPRESSION: 1. No acute osseous abnormality. Reviewed, dictated and finalized at location [facility]. ATION ASSISTANT
[2023-06-29 11:03] VITALS: BP 137/79; PULSE 72; RESP 16; TEMP 36.6; O2SAT 99
--- NOTE | 2023-06-29 11:15 | ED.LOWEXIN ---
HPI - Extremity Injury (Lower) General Chief Complaint: Extremity Injury, Lower Stated Complaint: right foot and ankle pain x 2 days Time Seen by Provider: 06/29/23 11:12 History of Present Illness HPI Narrative: Patient is a healthy 37-year-old female here with right foot and ankle pain and right leg swelling. She states that 2 days ago she was stepping down from a chair and felt a pop in her right foot. She noticed immediate pain in the medial and lateral aspect of her right foot. Pain is worse with movement and bearing weight. She has continued working on her feet over the last 2 days, putting in an 8 hour shift yesterday Which significantly worsened her pain. She notes that over the last 24 hours she has had increased swelling, tightness, pain throughout her right leg. No prior history of PE or DVT. She has been taking Tylenol and ibuprofen for the pain. Last dose of ibuprofen was approximately 2 hours ago. No Tylenol was taken today. She denies any prior orthopedic surgeries. Only surgery in the past was a hysterectomy. She denies chance of being . She did not fall to the floor, she did not have any additional injuries. Related Data Home Medications Medication Instructions Recorded Confirmed No Home Medications 06/29/23 06/29/23 Allergies Allergy/AdvReac Type Severity Reaction Status Date / Time No Known Allergies Allergy Verified 10/30/22 14:52 Review of Systems Review of Systems: All systems reviewed & are unremarkable except as noted in HPI and below PMFSH Past Medical History Medical History No active medical problems Surgical History Surgical History H/O section H/O tubal ligation Social History Social History Smoking status: Never smoker Second hand tobacco smoke exposure: No Alcohol intake: never Substance use: never Substance use type: does not use Living arrangements: with family Additional occupation/education comments: [employer] Gender identity (if verbalized by the patient): Female Sexual Orientation (if Verbalized by the Patient): Straight or Heterosexual Spiritual care concerns: No Exam Narrative: GENERAL: Well-appearing, well-nourished, and in no acute distress. HEAD: Normocephalic, atraumatic. EYES: PERRLA and EOMI. ENT: Nares clear. Mucous membranes moist. NECK: Supple. CHEST: Clear to auscultation. No respiratory distress. HEART: Regular rate and rhythm. Normal peripheral pulses. ABDOMEN: Soft, nontender, nondistended. EXTREMITIES: tenderness over the 5th and 1st metatarsal diffusely on the right side. Minimal foot edema appreciated. Strong DP pulse, no bruising. No bony deformity. she additionally has tenderness behind bilateral malleoli. Normal range of motion of the ankle. Knee nontender, hip nontender. She does have some trace swelling of the right leg up to the knee, calf tenderness present. SKIN: Warm, dry, no rash. NEURO: No focal deficits. Alert and oriented x3. PSYCH: Normal mood and affect. Course Course Emergency Course: Chart review performed. Patient here with foot pain. Triage vitals grossly normal. Patient seen evaluated, nontoxic appearing. She does have suspected foot injury, will do x-rays to evaluate for possible fracture of both the foot and ankle. She does have some significant tenderness in the calf and mild swelling, will do lower extremity Doppler to evaluate for possible provoked DVT. Tylenol ordered for pain. Patient agreeable to workup and plan. Imaging negative. Recommend rest, ice, elevation. Advised taking the next few days off of work. The results of pertinent diagnostic studies and exam findings were discussed. The patient?s provisional diagnosis and plan of care were discussed with the patient and present family. The patient a
[2023-06-29] MEDS: ACETAMINOPHEN 500 MG TABLET 1000 MG PO (11:17)
[2023-06-29 12:19] VITALS: PULSE 90; RESP 20; O2SAT 98
== END 2023-06-29 12:19 | disposition home or self-care (01) ==
PROVIDERS: Emergency Provider Student in an Organized Health Care Education/Training Program; PCP Family Medicine
DX: S93.601A Unspecified sprain of right foot, initial encounter (principal); S93.401A Sprain of unspecified ligament of right ankle, initial encounter; X50.0XXA Overexertion from strenuous movement or load, initial encounter
CPT/HCPCS: 73610; 73630; 93971; 99284

== ENCOUNTER 2023-09-06 14:58 | Emergency (ER) | payer OTHER, SELFPAY ==
[2023-09-06] VITALS (15 sets, daily range): BP systolic 108–141; BP diastolic 69–94; PULSE 63–72; RESP 11–24; TEMP 36.2–36.4; O2SAT 98–100
--- NOTE | ~2023-09-06 | XR_ITS ---
EXAMINATION: XR chest 1V portable DATE: 09/06/2023 15:20 INDICATION: Chest tightness. TECHNIQUE: A single frontal view of the chest was obtained. COMPARISON: CT abdomen and pelvis 04/11/2022 FINDINGS: There is no pneumonia, pleural effusion, or pneumothorax. The heart size is normal. IMPRESSION: 1. No acute cardiopulmonary disease. Reviewed, dictated and finalized at location [facility].
--- NOTE | 2023-09-06 15:04 | ECG_ITS ---
SEE SCANNED COPY FOR CONFIRMED REPORT MTDD
[2023-09-06] MEDS: KETOROLAC (*BKC) 60 MG/2 ML VIAL IM (15:08)
--- NOTE | 2023-09-06 15:18 | ED.CHESTPAIN ---
HPI - Chest Pain General Chief Complaint: Chest Pain Stated Complaint: chest tightness Time Seen by Provider: 09/06/23 14:59 Source: patient Mode of arrival: ambulatory Limitations: no limitations History of Present Illness HPI narrative: this is a 38-year-old female with no significant past medical history presents with a chest tightness midsternal reproducible started around 6:00 a.m. this morning with no shortness of breath no nausea vomiting no diaphoresis no history of heart disease nonsmoker no abdominal pain no fever chills. complaint: chest discomfort ( Reproducible with palpation) Onset (ago): hour(s) Timing of current episode: episodic Prior episodes: Yes Onset: during rest Pain location: parasternal Pain radiation: none Severity: moderate Quality: aching Related Data Allergies Allergy/AdvReac Type Severity Reaction Status Date / Time No Known Allergies Allergy Verified 09/06/23 14:59 Review of Systems Review of Systems: All systems reviewed & are unremarkable except as noted in HPI and below PMFSH Past Medical History Medical History No active medical problems Surgical History Surgical History H/O section H/O tubal ligation Social History Social History Smoking status: Never smoker Second hand tobacco smoke exposure: No Alcohol intake: never Substance use: never Substance use type: does not use Living arrangements: with family Additional occupation/education comments: [employer] Gender identity (if verbalized by the patient): Female Sexual Orientation (if Verbalized by the Patient): Straight or Heterosexual Spiritual care concerns: No Exam Const: General: cooperative, healthy appearing and no acute distress HENMT: Head: normal to inspection Chest: Chest palpation & inspection: normal inspection of the chest Other: Reproducible chest pain with palpation Resp: Effort & Inspection: normal respiratory effort Auscultation: clear to auscultation bilaterally Cardio: Jugular venous distension: no JVD Palpation: normal PMI Rate: regular rate Rhythm: regular rhythm Heart sounds: S2 normal heart sound present GI: Inspection: normal to inspection : General: Yes bimanual renal exam normal bilaterally Neuro: General: oriented to person, oriented to place, oriented to time and patient oriented x3 Course Course Emergency Course: EKG shows normal sinus rhythm with no ST or T changes with a heart rate of 60. Patient did receive a dose of 60mg IM Toradol and after reassessment has a mild to moderate relief of her discomfort labs reviewed and within normal limits. Vital Signs Vital signs: Vital Signs Temperature 36.2 C L 09/06/23 14:58 Pulse Rate 70 09/06/23 14:58 Respiratory Rate 12 09/06/23 14:58 Blood Pressure 141/94 H 09/06/23 14:58 Pulse Oximetry 99 09/06/23 14:58 Oxygen Delivery Room Air 09/06/23 14:58 Temperature 36.2 C L 09/06/23 14:58 Pulse Rate 70 09/06/23 14:58 Respiratory Rate 12 09/06/23 14:58 Blood Pressure 141/94 H 09/06/23 14:58 Pulse Oximetry 99 09/06/23 14:58 Oxygen Delivery Room Air 09/06/23 14:58 Critical Care Time Critical Care Time Critical Care Time: No Discharge Plan Discharge Clinical Impression: Atypical chest pain, Costalchondritis Patient Disposition: Home, Self-Care Condition: Stable Instructions: Antibiotic Form, Costochondritis (ED), Chest Wall Pain (ED) Additional Instructions: advised to take medication as prescribed and follow-up with primary for further evaluation and treatment. Prescriptions: New tramadol 50 mg tablet 50 mg PO Q6H PRN (Reason: pain) Qty: 20 0RF Follow-up/Referrals: Tye Conroy M.D. [Primary Care Provider] - Time of Disposition: 15:58
[2023-09-06 15:32] LABS: Basophils Absolute Auto 0.02 K/mm3 (0.00-0.10); Basophils Percent Auto 0.4 % (0.0-1.0); Eosinophils Absolute Auto 0.07 K/mm3 (0.02-0.50); Eosinophils Percent Auto 1.3 % (1.0-6.0); Hematocrit 39.4 % (35.0-49.0); Hemoglobin 12.8 g/dL (12.0-15.0); Immature Granulocyte Absolute 0.01 K/mm3 (0.00-0.00); Immature Granulocyte Percent A 0.2 % (0.0-0.0); Lymphocytes Absolute Auto 1.89 K/mm3 (1.10-4.50); Lymphocytes Percent Auto 36.3 % (18.0-42.0); Mean Corpuscular HGB Conc 32.5 g/dL (32-36); Mean Corpuscular Hemoglobin 27.6 pg (27.0-31.0); Mean Corpuscular Volume 85.1 fL (78.0-102.0); Mean Platelet Volume 10.3 fl (9.2-11.8); Monocytes Absolute Auto 0.45 K/mm3 (0.10-0.90); Monocytes Percent Auto 8.7 % (2.0-11.0); Neutrophils Absolute Auto 2.76 K/mm3 (1.70-7.20); Neutrophils Percent Auto 53.1 % (50.0-70.0); Platelet Count Result 201 K/mm3 (150-420); Red Blood Count 4.63 M/mm3 (4.20-5.40); Red Cell Distribution Width 13.6 % (11.6-14.4); White Blood Count 5.2 K/mm3 (4.8-10.8)
[2023-09-06 15:50] LABS: Alanine Aminotransferase 20 U/L (14-59); Albumin Level 3.7 g/dL (3.4-5.0); Alkaline Phosphatase 68 U/L (46-116); Anion Gap 9 mmol/L (4-12); Aspartate Amino Transferase 13 U/L (15-37); Bilirubin,Total 0.3 mg/dL (0.00-1.00); Blood Urea Nitrogen 22 mg/dL (7-18); Calcium 8.8 mg/dL (8.5-10.1); Carbon Dioxide 28 mmol/L (21-32); Chloride 102 mmol/L (98-108); Estimated Glomerular Filt Rate > 60; Glucose 82 mg/dL (70-99); Osmolality Calculated 290 mOsm/kg (285-295); Potassium 3.5 mmol/L (3.5-5.1); Sodium 139 mmol/L (136-145); Total Protein 7.5 g/dL (6.4-8.2)
[2023-09-06 15:52] LABS: Troponin I < 4.0 ng/L (0.00-60.4)
== END 2023-09-06 16:41 | disposition home or self-care (01) ==
PROVIDERS: Emergency Provider Emergency Medicine; PCP Family Medicine
DX: M94.0 Chondrocostal junction syndrome [Tietze] (principal)
CPT/HCPCS: 36415; 71045; 80053; 84484; 85025; 93005; 96372; 99284; J1885

== ENCOUNTER 2023-11-05 13:07 | Emergency (ER) | payer OTHER, SELFPAY ==
[2023-11-05] VITALS (9 sets, daily range): BP systolic 118–141; BP diastolic 75–100; PULSE 66–88; RESP 15–20; TEMP 36.8–37.1; O2SAT 98–100
--- NOTE | ~2023-11-05 | CT_ITS ---
EXAMINATION: CT brain wo con DATE: 11/05/2023 16:18 INDICATION: headache . TECHNIQUE: Computed tomography (CT) of the head was performed without intravenous contrast. The mA wa s adjusted according to patient size. Iterative reconstruction technique was employed. The dose-lengt h product was 605.33 mGy-cm. COMPARISON: None. FINDINGS: No acute intracranial hemorrhage or extra-axial fluid collection. No hydrocephalus, mass, or herniation. No acute ischemic infarct. Unremarkable dural venous sinus attenuation. No acute osseous abnormality. Bilateral mastoid fluid, with minimal fluid/mucosal thickening in the bilateral middle ears spaces, t he remaining aerated spaces are clear. IMPRESSION: No acute intracranial process. Mild fluid/mucosal thickening in the bilateral middle ear compartments, correlate for clinical findin gs of otitis media. Bilateral mastoid effusions. Reviewed, dictated and finalized at location K. IMPRESSION: No acute intracranial process. Mild fluid/mucosal thickening in the bilateral middle ear compartments, correla te for clinical findings of otitis media. Bilateral mastoid effusions.
--- NOTE | 2023-11-05 13:14 | ED.EYEPROB ---
HPI - Eye Problem General Chief complaint: Headache Stated complaint: HEADACHE Time Seen by Provider: 11/05/23 13:13 Source: patient Mode of arrival: ambulatory Limitations: no limitations History of Present Illness HPI Narrative: 38 year old female presents to the Emergency Department complaining of migraine headache. Patient has no history or work up for headaches and no official diagnosis of migraine headaches in the past. Patient states pain is in the right temporal-parietal region and behind her right eye. States she splashed soap in her right eye several days ago and was irritated for a day, but that has resolved. Denies any eye drainage or visual deficit. States vomited today. Denies earache, sore throat, cough, congestion, sinus drainage. chief complaint: eye pain Onset (ago): day(s) Duration: now resolved Location: right eye Mechanism: chemical exposure (splashed some soap in eye) Related Data Allergies Allergy/AdvReac Type Severity Reaction Status Date / Time No Known Allergies Allergy Verified 09/06/23 14:59 Review of Systems Review of Systems: All systems reviewed & are unremarkable except as noted in HPI and below Constitutional: Constitutional: Reports as per HPI and Denies fever(s) Eyes: Eyes: Reports as per HPI and Reports no additional eye complaints ENT: Reports system reviewed and no additional complaints, except as documented, Denies nasal congestion and Denies sore throat Cardiovascular: Cardiovascular: Reports as per HPI Respiratory: Respiratory: Reports as per HPI Gastrointestinal: Gastrointestinal: Reports as per HPI, Denies diarrhea, Reports nausea and Reports vomiting (once today) Genitourinary: Genitourinary: Reports no additional female genitourinary complaints Musculoskeletal: Musculoskeletal: Reports no additional musculoskeletal complaints Neurologic: Reports system reviewed and no additional complaints, except as documented, Denies dizziness, Reports headache(s), Denies focal weakness, Denies numbness and Denies weakness Endocrine: Endocrine: Reports no additional endocrine complaints Hematologic/Lymphatic: Hematologic/Lymphatic: Reports no additional hematologic/lymphatic complaints Allergic/Immunologic: Allergic/Immunologic: Reports no additional allergic/immunologic complaints PMFSH Past Medical History Medical History No active medical problems Surgical History Surgical History H/O section H/O tubal ligation Social History Social History Smoking status: Never smoker Second hand tobacco smoke exposure: No Alcohol intake: never Substance use: never Substance use type: does not use Living arrangements: with family Additional occupation/education comments: [employer] Gender identity (if verbalized by the patient): Female Sexual Orientation (if Verbalized by the Patient): Straight or Heterosexual Spiritual care concerns: No Exam Const: General: healthy appearing Nutritional Appearance: obese Orientation/consciousness: patient oriented x3 Limitations: no limitations HENMT: Head: normal to inspection Ears: external ears normal Face/Nose/Sinus: Normal external nose present Face and sinus: normal facial exam Mouth: Yes Normal oral and palatal mucosa present Teeth and gingiva: dentition normal Throat: posterior oropharynx normal Eyes: Conjunctivae: conjunctivae normal Pupils: Equal, round and reactive pupils present EOM: EOMs intact bilaterally Direct Ophthalmoscopy: no photophobia Neck: Neck: normal visual inspection Chest: Chest palpation & inspection: normal inspection of the chest Resp: Effort & Inspection: normal respiratory effort Auscultation: clear to auscultation bilaterally Cardio: Rate: regular rate Rhythm: regular rhythm GI: Inspection: non-distend
[2023-11-05 13:47] LABS: Basophils Absolute Auto 0.04 K/mm3 (0.00-0.10); Basophils Percent Auto 0.6 % (0.0-1.0); Eosinophils Absolute Auto 0.15 K/mm3 (0.02-0.50); Eosinophils Percent Auto 2.4 % (1.0-6.0); Immature Granulocyte Absolute 0.01 K/mm3 (0.00-0.00); Immature Granulocyte Percent A 0.2 % (0.0-0.0); Lymphocytes Absolute Auto 1.86 K/mm3 (1.10-4.50); Lymphocytes Percent Auto 29.8 % (18.0-42.0); Mean Corpuscular HGB Conc 33.3 g/dL (32-36); Mean Corpuscular Hemoglobin 28.4 pg (27.0-31.0); Mean Corpuscular Volume 85.2 fL (78.0-102.0); Mean Platelet Volume 10.4 fl (9.2-11.8); Monocytes Absolute Auto 0.31 K/mm3 (0.10-0.90); Neutrophils Absolute Auto 3.88 K/mm3 (1.70-7.20); Platelet Count Result 246 K/mm3 (150-420); Red Blood Count 4.58 M/mm3 (4.20-5.40); White Blood Count 6.3 K/mm3 (4.8-10.8)
[2023-11-05] MEDS: KETOROLAC 30 MG/ML VIAL (*BKC) IV PUSH (13:47)
[2023-11-05] MEDS: diphenhydrAMINE HCl INJ 50 MG/ML VIAL IV PUSH (13:48)
[2023-11-05] MEDS: METOCLOPRAMIDE HCL INJ 10 MG/2 ML VIAL IV PUSH (13:50)
[2023-11-05] MEDS: LORazepam INJ (*CRX) 2 MG/ML VIAL 1 MG IV PUSH (13:53)
[2023-11-05 14:06] LABS: Alanine Aminotransferase 17 U/L (14-59); Albumin Level 3.5 g/dL (3.4-5.0); Alkaline Phosphatase 76 U/L (46-116); Anion Gap 7 mmol/L (4-12); Aspartate Amino Transferase 15 U/L (15-37); Bilirubin,Total 0.2 mg/dL (0.00-1.00); Blood Urea Nitrogen 13 mg/dL (7-18); Calcium 9.1 mg/dL (8.5-10.1); Carbon Dioxide 27 mmol/L (21-32); Chloride 104 mmol/L (98-108); Estimated CRCL calculation 107 ml/min; Estimated Glomerular Filt Rate > 60; Glucose 87 mg/dL (70-99); Osmolality Calculated 285 mOsm/kg (285-295); Potassium 3.8 mmol/L (3.5-5.1); Sodium 138 mmol/L (136-145); Total Protein 7.6 g/dL (6.4-8.2)
[2023-11-05 14:28] LABS: Appearance Urine Sl Cloudy (Clear); Bilirubin Urine Negative (Negative); Blood Urine 3+ (Negative); Color Urine Red (Yellow); Glucose Urine UA Negative (Negative); Ketones Urine Negative (Negative); Leukocyte Esterase Ur Negative (Negative); Nitrate Urine Negative (Negative); Protein Urine 2+ (Negative); Urobilinogen Urine 0.2 mg/dL (0.2-1.0)
[2023-11-05 14:31] LABS: Add Urine Microscopic? YES
[2023-11-05 14:32] LABS: Bacteria Urine Trace /hpf; RBC Urine >100 /hpf (0-2); Squamous Epithelial Cell Urine Few /hpf (Few); WBC Urine None seen /hpf (0-3)
[2023-11-05 14:33] LABS: Pregnancy On Board Control Positive; Urine Pregnancy Test Negative
[2023-11-05 14:47] LABS: Erythrocyte Sedimentation Rate 27 mm/hr (0-15)
== END 2023-11-05 16:31 | disposition home or self-care (01) ==
PROVIDERS: Emergency Provider Emergency Medicine; PCP Family Medicine
DX: G44.009 Cluster headache syndrome, unspecified, not intractable (principal)
CPT/HCPCS: 36415; 70450; 80053; 81001; 81025; 85025; 85652; 96374; 96375; 99284; A9270; J1200; J1885; J2060; J2765

== ENCOUNTER 2024-02-06 09:09 | Emergency (ER) | payer SELFPAY ==
[2024-02-06] VITALS (14 sets, daily range): BP systolic 108–135; BP diastolic 69–93; PULSE 60–82; RESP 12–20; TEMP 37.1; O2SAT 98–100
--- NOTE | ~2024-02-06 | XR_ITS ---
Portable chest x-ray Comparison: 09/06/2023 Clinical History: Chest pain Findings: Lungs are clear, without focal consolidation or pleural effusion. Cardiomediastinal silho uette is stable. Bones and soft tissues are unremarkable. Impression: Normal chest. Reviewed, dictated and finalized at [facility]. Impression: Normal chest.
--- NOTE | 2024-02-06 09:10 | ECG_ITS ---
Test Date: 2024-02-06 09:17:46 Measurements Intervals [place] Rate: 66 P: 33 IN: 154 QRS: 56 QRSD: 88 T: -7 QT: 400 QTc: 421 Interpretive Statements SINUS RHYTHM POOR R-WAVE PROGRESSION No previous ECG available for comparison Electronically Signed On 02-06-2024 09:36:57 CDT by Donald Ross M.D.
--- NOTE | 2024-02-06 09:12 | ED.CHESTPAIN ---
HPI - Chest Pain General Chief Complaint: Chest Pain Stated Complaint: chest pain Source: patient Mode of arrival: ambulatory Limitations: no limitations History of Present Illness HPI narrative: 38-year-old female history of anxiety, status post BTL presents to the ED 4 hour history of -- anterior chest pain. pain was unprovoked. No radiation of the pain. Pain is rated as 7/10. No nausea / vomiting. No shortness of breath. She has had prior episodes of anterior chest pain. MD complaint: chest pain Onset (ago): hour(s) ( 4 hours ago) Timing of current episode: constant Pain location: substernal Pain radiation: none Severity: moderate Pain scale (0-10): 7 Quality: aching Relieving factors: nothing Exacerbating factors: nothing Treatment prior to arrival: none Risk Factors Coronary artery disease risk factors: none Thoracic aortic dissection risk factors: none Related Data On Oral Contraceptives: No Allergies Allergy/AdvReac Type Severity Reaction Status Date / Time No Known Allergies Allergy Verified 09/06/23 14:59 Review of Systems Review of Systems: All systems reviewed & are unremarkable except as noted in HPI and below Constitutional: Constitutional: Reports as per HPI and Reports no additional constitutional complaints Eyes: Eyes: Reports as per HPI and Reports no additional eye complaints ENT: Reports system reviewed and no additional complaints, except as documented and Reports as per HPI Cardiovascular: Cardiovascular: Reports as per HPI, Reports no additional cardiovascular complaints and Reports chest pain Respiratory: Respiratory: Reports as per HPI and Reports no additional respiratory complaints Gastrointestinal: Gastrointestinal: Reports as per HPI and Reports no additional gastrointestinal complaints Genitourinary: Genitourinary: Reports no additional female genitourinary complaints and Reports as per HPI Musculoskeletal: Musculoskeletal: Reports no additional musculoskeletal complaints and Reports as per HPI Integumentary/Breasts: Skin/Breast: Reports system reviewed and no additional complaints, except as docu and Reports as per HPI Neurologic: Reports system reviewed and no additional complaints, except as documented and Reports as per HPI Psychiatric: Psychiatric: Reports no additional psychiatric complaints and Reports as per HPI Endocrine: Endocrine: Reports no additional endocrine complaints and Reports as per HPI Hematologic/Lymphatic: Hematologic/Lymphatic: Reports no additional hematologic/lymphatic complaints and Reports as per HPI Allergic/Immunologic: Allergic/Immunologic: Reports no additional allergic/immunologic complaints and Reports as per HPI [facility] Past Medical History Medical History No active medical problems Surgical History Surgical History H/O section H/O tubal ligation Social History Social History Smoking status: Never smoker Second hand tobacco smoke exposure: No Alcohol intake: never Substance use: never Substance use type: does not use Living arrangements: with family Additional occupation/education comments: [employer] Gender identity (if verbalized by the patient): Female Sexual Orientation (if Verbalized by the Patient): Straight or Heterosexual Spiritual care concerns: No Exam Narrative: vitals are stable Const: General: no acute distress Nutritional Appearance: well nourished Orientation/consciousness: patient oriented x3 Limitations: no limitations HENMT: Head: normal to inspection Ears: external ears normal Face/Nose/Sinus: Normal external nose present Face and sinus: normal facial exam Mouth: Yes Normal oral and palatal mucosa present Throat: posterior oropharynx normal Eyes: Conjunctivae: conjunctivae normal Pupils: Equal, round and re
[2024-02-06 09:32] LABS: Basophils Absolute Auto 0.04 K/mm3 (0.00-0.10); Basophils Percent Auto 0.7 % (0.0-1.0); Eosinophils Absolute Auto 0.11 K/mm3 (0.02-0.50); Eosinophils Percent Auto 1.9 % (1.0-6.0); Hematocrit 40.1 % (35.0-49.0); Hemoglobin 13.4 g/dL (12.0-15.0); Immature Granulocyte Absolute 0.01 K/mm3 (0.00-0.00); Immature Granulocyte Percent A 0.2 % (0.0-0.0); Lymphocytes Absolute Auto 1.37 K/mm3 (1.10-4.50); Lymphocytes Percent Auto 23.4 % (18.0-42.0); Mean Corpuscular HGB Conc 33.4 g/dL (32-36); Mean Corpuscular Hemoglobin 28.8 pg (27.0-31.0); Mean Corpuscular Volume 86.1 fL (78.0-102.0); Mean Platelet Volume 10.8 fl (9.2-11.8); Monocytes Absolute Auto 0.34 K/mm3 (0.10-0.90); Monocytes Percent Auto 5.8 % (2.0-11.0); Neutrophils Absolute Auto 3.98 K/mm3 (1.70-7.20); Platelet Count Result 222 K/mm3 (150-420); Red Blood Count 4.66 M/mm3 (4.20-5.40); Red Cell Distribution Width 12.9 % (11.6-14.4); White Blood Count 5.9 K/mm3 (4.8-10.8)
[2024-02-06] MEDS: ALPRAZolam (*CRX) 0.5 MG TABLET 0.25 MG PO (09:35)
[2024-02-06 09:50] LABS: Partial Thromboplastin Time 28.2 Sec (23.9-30.70)
[2024-02-06 10:01] LABS: Alanine Aminotransferase 20 U/L (14-59); Albumin Level 3.5 g/dL (3.4-5.0); Alkaline Phosphatase 79 U/L (46-116); Anion Gap 7 mmol/L (4-12); Aspartate Amino Transferase 13 U/L (15-37); Bilirubin,Total 0.4 mg/dL (0.00-1.00); Blood Urea Nitrogen 16 mg/dL (7-18); Calcium 9.1 mg/dL (8.5-10.1); Carbon Dioxide 28 mmol/L (21-32); Chloride 104 mmol/L (98-108); Estimated CRCL calculation 94 ml/min; Estimated Glomerular Filt Rate > 60; Glucose 103 mg/dL (70-99); Osmolality Calculated 289 mOsm/kg (285-295); Potassium 3.8 mmol/L (3.5-5.1); Sodium 139 mmol/L (136-145); Total Protein 7.7 g/dL (6.4-8.2)
[2024-02-06 10:02] LABS: Troponin I < 4.0 ng/L (0.00-60.4)
[2024-02-06 10:31] LABS: D Dimer 0.43 mg/L (0.19-0.50)
[2024-02-06] MEDS: KETOROLAC 30 MG/ML VIAL (*BKC) IM (10:54)
== END 2024-02-06 10:59 | disposition home or self-care (01) ==
PROVIDERS: Emergency Provider Internal Medicine Critical Care Medicine
DX: F41.9 Anxiety disorder, unspecified (principal); R07.89 Other chest pain
CPT/HCPCS: 36415; 71045; 80053; 84484; 85025; 85380; 85610; 85730; 93005; 96372; 99284; A9270; J1885

== ENCOUNTER 2024-07-07 14:20 | Emergency (ER) | payer SELFPAY ==
--- NOTE | ~2024-07-07 | XR_ITS ---
3 VIEWS LUMBAR SPINE Ordering provider: Juanis Oden MD History: . back pain post heavy lifting X 4 days . Comparison: None. FINDINGS: VERTEBRAL BODIES: No visible fracture or subluxation. Degenerative changes of the spine. DISK SPACES: Normal. SOFT TISSUES: Normal. IMPRESSION: No acute osseous abnormality lumbar spine. Reviewed, dictated and finalized at location A.
[2024-07-07 14:20] VITALS: BP 143/101; PULSE 75; RESP 18; TEMP 36.2; O2SAT 100
--- NOTE | 2024-07-07 14:34 | ED_ITS ---
HPI - Back Pain/Injury General Chief Complaint: Back Pain/Injury Stated Complaint: Back pain Time Seen by Provider: 07/07/24 14:33 History of Present Illness HPI Narrative: 38 years old white female drove herself to the emergency room complaining of lower back pain after lifting a 44 lb doc 3 days ago for the 1st time. She denies radiation of pain, sharp stabbing along the lumbar area worse with any movement, better remaining still. 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 Related Data Allergies Allergy/AdvReac Type Severity Reaction Status Date / Time No Known Allergies Allergy Verified 07/07/24 14:31 Review of Systems Review of Systems: All systems reviewed & are unremarkable except as noted in HPI and below PMFSH Past Medical History Medical History No active medical problems Surgical History Surgical History H/O tubal ligation H/O section Social History Social History Smoking status: Never smoker Second hand tobacco smoke exposure: No Alcohol intake: never Substance use: never Substance use type: does not use Living arrangements: with family Additional occupation/education comments: [employer] Gender identity (if verbalized by the patient): Female Sexual Orientation (if Verbalized by the Patient): Straight or Heterosexual Spiritual care concerns: No Exam Narrative: General appearance: Well-developed, well-nourished Skin: Normal color Head: Normocephalic, nontraumatic Eyes: Clear conjunctiva ENT: Oropharynx normal, ears normal, nose normal Neck: Supple, nontender Chest and respiratory: Airway patent, no respiratory distress, no accessory muscle use Heart: Regular rate/rhythm Abdomen: Soft, nontender, no organomegaly, quiet bowel sounds Vascular: Normal peripheral pulses, normal capillary refill. Musculoskeletal: Diffuse pain across the lumbar area, no bruises, no swelling, no rash Neurologic: Alert and oriented ?3, E[employer]ER is normal as tested, no gross motor deficit Course Vital Signs Vital signs: Vital Signs Temperature 36.2 C L 07/07/24 14:20 Pulse Rate 75 07/07/24 14:20 Respiratory Rate 18 07/07/24 14:20 Blood Pressure 143/101 H 07/07/24 14:20 Pulse Oximetry 100 07/07/24 14:20 Oxygen Delivery Room Air 07/07/24 14:20 Temperature 36.2 C L 07/07/24 14:20 Pulse Rate 75 07/07/24 14:20 Respiratory Rate 18 07/07/24 14:20 Blood Pressure 143/101 H 07/07/24 14:20 Pulse Oximetry 100 07/07/24 14:20 Oxygen Delivery Room Air 07/07/24 14:20 MDM - Back Pain/Injury MDM Narrative Medical decision making narrative: differential diagnosis include musculoskeletal pain, muscular strain / sprain, less likely vertebral compression fracture Lumbar spine x-ray showed no acute abnormalities Discharged on anti-inflammatory medicine and muscle relaxant at 2 days of work Differential Diagnosis Differential diagnosis: Likely other ( as above) Imaging Data My impression: Impressions Lumbar Spine X-Ray 07/07/24 15:01 IMPRESSION: No acute osseous abnormality lumbar spine. Radiologist's impression: x-ray of the lumbar spine showed no acute abnormality Discharge Plan Discharge Clinical Impression: Lower back pain Patient Disposition: Home, Self-Care Condition: Stable Instructions: Acute Low Back Pain (ED), Lower Back Exercises (ED) Additional Instructions: Return if symptoms are worsening , call your family physician for appointment, take Tylenol as as needed for aches and pain, continue home medications. Massage Heating pad Lower back exercise Patient Language: Liberian Prescriptions: New naproxen [Naprosyn] 500 mg tablet 500 mg PO BID PRN (Reason: pain) Qty: 20 0RF cyclobenzaprine 10 mg tablet 10 mg PO TID PRN (Reason: muscle spasm) Qty: 20 0RF Follow-up/Referrals: Tye Conroy M.D. [Primary Care Provider] - Stand Alone Forms: Work/School Release IP
--- OUTSIDE RECORDS SUMMARY | 2024-07-07 17:03 | XMS_ITS | Clinical Summary ---
Author Organization [facility] Address [address] [place] [address] Care Team Providers Care Rn Emergency Name Role Phone Tye Conroy MD Primary Care Provider [phone] Allergies No known active allergies Medications No known medications Active Problems No known active problems Resolved Problems Problem Noted Date Diagnosed Date Resolved Date Acute pancreatitis (HHS/HCC) 03/22/2019 11/05/2019 Twins 01/11/2018 03/22/2019 Encounters Date Type Department Care Team Description 06/20/2024 2:15 PM TOBACCO EDUCATOR - 06/20/2024 3:45 PM [facility] Emergency [place] [facility] [address] [place] [place] [address] Delilah Orantes DO Fall; Elbow Injury; Wrist Pain Discharge Disposition: Home or Self Care (Routine Discharge) 06/20/2024 Travel from Last 3 Months Immunizations Name Administration Dates Next Due MMR (MMRII) 01/12/2018 Tdap (Boostrix) 01/15/2018 Family History Medical History Relation Comments Heart Disease Father Heart Disease Sister Relation Status Comments Father Alive Mother Alive Sister Social History Tobacco Use Types Packs/Day Years Used Date Smoking Tobacco: Never Smokeless Tobacco: Never Alcohol Use Standard Drinks/Week Comments No 0 (1 standard drink = 0.6 oz pur e alcohol) AUDIT-C Answer Date Recorded Frequency of Alcohol Consumption Never 01/11/2018 Average Number of Drinks Not on file 018 Frequency of Binge Drinking Not on file 12/23 Comments No Sex and Gender Information Value Date Recorded Sex Assigned at Female 01/11/2018 7:28 AM CDT Legal Sex Female 2:38 PM CDT Gender Identity Female 01/11/2018 7:28 AM CDT Sexual Orientation Not on file Last Filed Vital Signs Vital Sign Reading Time Taken Comments Blood Pressure 155/109 06/20/2024 1:45 PM TOBACCO EDUCATOR Pulse 85 06/20/2024 1:45 PM TOBACCO EDUCATOR Temperature 36.7 C (98.1 F) 06/20/2024 1:45 PM TOBACCO EDUCATOR Respiratory Rate 18 06/20/2024 1:45 PM TOBACCO EDUCATOR Oxygen Saturation 99% 06/20/2024 1:45 PM TOBACCO EDUCATOR Inhaled Oxygen Concentration - - Weight 90.7 kg (200 lb) 06/20/2024 1:45 PM TOBACCO EDUCATOR Height 152.4 cm (5') 06/20/2024 1:45 PM TOBACCO EDUCATOR Body Mass Index 39.06 06/20/2024 1:45 PM TOBACCO EDUCATOR Plan of Treatment Health Maintenance Due Date Last Done Comments Cervical Cancer Screening Pap Smear (Age 30 to 64) Every 3 Years 1986 Annual Physical 1989 Hepatitis C 2004 Hepatitis B Vaccines (1 of 3 - 19+ 3-dose series) 2005 Cervical Cancer Screening Pap with HPV Testing (Age 30 to 64) Every 5 Years 2016 Cervical Cancer Screening with HPV 2016 COVID-19 Vaccine ( season) 2023 Influenza Adult (#1) 2024 DTaP, Tdap and Td Vaccines (2 - Td or Tdap) 01/16/2028 01/15/2018, 07/18/1991, 05/05/1988, Additional history exists HPV Vaccines Aged Out No longer eligi ble based on patient's age to complete this topic Meningococcal B Vaccine Aged Out No l onger eligible based on patient's age to complete this topic Meningococcal Vaccine Aged Out No valdez delta eligible based on patient's age to complete this topic Pneumococcal Vaccine: Pediatrics (0 to 5 Years) and At-Risk Patients (6 to 64 Years) Aged Out No longer eligible based on patient's age to complete this topic RSV Immunizations Under 20 Months Aged Out No longer eligible based on patient's age to complete this topic Procedures Procedure Name Priority Date/Time Associated Diagnosis Comments XR WRIST RT MIN 3V STAT 06/20/2024 2: 06 PM TOBACCO EDUCATOR XR ELBOW RT M3V STAT 06/20/2024 2:06 PM TOBACCO EDUCATOR from Last 3 Months Results * XR WRIST RT MIN 3V (06/20/2024 2:06 PM TOBACCO EDUCATOR) Anatomical Region Laterality Modality Wrist Radiographic Ana ging 06/20/2024 2:04 PM TOBACCO EDUCATOR Impressions 06/20/2024 2:04 PM TOBACCO EDUCATOR IMPRESSION: 1) No significant radiographic abnormality. If symptoms persist, correlation with repeat right wrist radiograph in 10-14 days may be helpful. Ordered By: DELILAH ORANTES Interpreted By: Tim Whitman MD, 06/20/2024 2:04 PM Narrative 06/20/2024 2:04 PM TOBACCO EDUCATOR [address] [place] [address] Examination: XR WRIST RT MIN 3V Exam time: 06/20/2024 2:03 PM Clinical history: Trauma Comparison: None Technique: AP, lateral and oblique right wrist Findings: No soft tissue abnormality. No fracture or dislocation. Joint spaces are well-maintained. Procedure Note Tim Whitman MD - 06/20/[address] [place] [address] Examination: XR WRIST RT MIN 3V Exam time: 06/20/2024 2:03 PM Clinical history: Trauma Comparison: None Technique: AP, lateral and oblique right wrist Findings: No soft tissue abnormality. No fracture or dislocation. Jointspaces are well-maintained. IMPRESSION: 1) No significant radiographic abnormality. If symptoms persist,correlation with repeat right wrist radiograph in 10-14 days may behelpful. Ordered By: DELILAH ORANTES Interpreted By: Tim Whitman MD, 06/20/2024 2:04 PM us Delilah Orantes DO GENERAL IMAGING Final Result * XR ELBOW RT M3V (06/20/2024 2:06 PM TOBACCO EDUCATOR) Anatomical Region Laterality Modality Elbow Radiographic Ana ging 06/20/2024 2:04 PM TOBACCO EDUCATOR Impressions 06/20/2024 2:05 PM TOBACCO EDUCATOR IMPRESSION: 1) No significant radiographic abnormality. Ordered By: DELILAH ORANTES Interpreted By: Tim Whitman MD, 06/20/2024 2:04 PM Narrative 06/20/2024 2:05 PM TOBACCO EDUCATOR [address] [place] [place] [address] Examination: XR ELBOW RT M3V Exam time: 06/20/2024 2:03 PM Clinical history: Trauma Comparison: None Technique: AP, lateral and oblique right elbow Findings: No soft tissue abnormality. No fat pad elevation. No evidence of acute fracture or dislocation. Joint spaces are well-maintained. Procedure Note Tim Whitman MD - 06/20/[address] [place] [place] [address] Examination: XR ELBOW RT M3V Exam time: 06/20/2024 2:03 PM Clinical history: Trauma Comparison: None Technique: AP, lateral and oblique right elbow Findings: No soft tissue abnormality. No fat pad elevation. No evidence ofacute fracture or dislocation. Joint spaces are well-maintained. IMPRESSION: 1) No significant radiographic abnormality. Ordered By: DELILAH ORANTES Interpreted By: Tim Whitman MD, 06/20/2024 2:04 PM Delilah Orantes DO GENERAL IMAGING Final Result from Last 3 Months Insurance [employer] Advance Directives * Full Code (Latest Code Status on File) Date Activated Date Inactivated Comments 11/03/2019 8:35 AM 11/05/2019 3:56 PM Care Teams Rn Emergency Relationship Specialty Start Date End Date Tye Conroy MD [address] [place] [address] PCP - General FAMILY PRACTICE 01/11/18
--- OUTSIDE RECORDS SUMMARY | 2024-07-07 17:03 | XMS_ITS | Encounter Summary ---
Author Organization [facility] Address [address] [place] [address] Care Team Providers Care Quality Assurance Assessor Name Role Phone Tye Conroy MD Primary Care Provider [phone] Encounter Details Date Type Department Care Team (Late st Contact Info) Description 09/28/2018 Abstract SFL CONVERSION [address] [place] [address] , Generic ConversionMD Social History Tobacco Use Types Packs/Day Years [...] AM CDT Sexual Orientation Not on file documented as of this encounter Plan of Treatment Not on file documented as of this encounter Visit Diagnoses Not on filedocumented in this encounter Care Teams Quality Assurance Assessor Relationship Specialty Start Date End Date Tye Conroy MD [address] [place] [phone] PCP - General FAMILY PRACTICE 01/11/18 documented as of this encounter
--- OUTSIDE RECORDS SUMMARY | 2024-07-07 17:29 | XMS_ITS | Encounter Summary ---
Author Organization [facility] Address [address] [place] [address] Care Team Providers Care Microsoft Exchange Administrator Name Role Phone Tye Conroy MD Primary Care Provider [phone] Encounter Details Date Type Department Care Team (Late st Contact Info) Description 09/28/2018 Abstract SFL CONVERSION [address] [place] [address] , Generic ConversionMD Social History Tobacco [...] on filedocumented in this encounter Care Teams Microsoft Exchange Administrator Relationship Specialty Start Date End Date Tye Conroy MD [address] [place] [phone] PCP - General FAMILY PRACTICE 01/11/18 documented as of this encounter
--- OUTSIDE RECORDS SUMMARY | 2024-07-07 17:29 | XMS_ITS | Clinical Summary ---
Author Organization [facility] Address [address] [place] [address] Care Team Providers Care Air Press Operator Name Role Phone Tye Conroy MD Primary Care Provider [phone] Allergies No known active allergies Medications No known medications Active Problems No known active problems Resolved Problems Problem Noted Date Diagnosed Date Resolved Date Acute pancreatitis (HHS/HCC) 03/22/2019 11/05/2019 Twins 01/11/2018 03/22/2019 Encounters Date Type Department Care Team Description 06/20/2024 2:15 PM MEDICAL AUDITOR - 06/20/2024 3:[address] [facility] Emergency [place] [facility] [address] [place] [address] Delilah Orantes DO Fall; Elbow Injury; Wrist [...] Comments Blood Pressure 155/109 06/20/2024 1:45 PM MEDICAL AUDITOR Pulse 85 06/20/2024 1:45 PM MEDICAL AUDITOR Temperature 36.7 C (98.1 F) 06/20/2024 1:45 PM MEDICAL AUDITOR Respiratory Rate 18 06/20/2024 1:45 PM MEDICAL AUDITOR Oxygen Saturation 99% 06/20/2024 1:45 PM MEDICAL AUDITOR Inhaled Oxygen Concentration - - Weight 90.7 kg (200 lb) 06/20/2024 1:45 PM MEDICAL AUDITOR Height 152.4 cm (5') 06/20/2024 1:45 PM MEDICAL AUDITOR Body Mass Index 39.06 06/20/2024 1:45 PM MEDICAL AUDITOR Plan of Treatment Health Maintenance Due Date [...] MIN 3V STAT 06/20/2024 2: 06 PM MEDICAL AUDITOR XR ELBOW RT M3V STAT 06/20/2024 2:06 PM MEDICAL AUDITOR from Last 3 Months Results * XR WRIST RT MIN 3V (06/20/2024 2:06 PM MEDICAL AUDITOR) Anatomical Region Laterality Modality Wrist Radiographic Ana ging 06/20/2024 2:04 PM MEDICAL AUDITOR Impressions 06/20/2024 2:04 PM MEDICAL AUDITOR IMPRESSION: 1) No significant radiographic abnormality. If symptoms persist, correlation with repeat right wrist radiograph in 10-14 days may be helpful. Ordered By: DELILAH ORANTES Interpreted By: Tim Whitman MD, 06/20/2024 2:04 PM Narrative 06/20/2024 2:04 PM MEDICAL AUDITOR [address] [place] [address] Examination: XR WRIST RT MIN 3V Exam time: 06/20/2024 2:03 PM Clinical history: Trauma Comparison: None Technique: AP, lateral and oblique right wrist Findings: No soft tissue abnormality. No fracture or dislocation. Joint spaces are well-maintained. Procedure Note Tim Whitman MD - 06/20/[address] [place] [address] Examination: XR WRIST RT MIN 3V Exam [...] XR ELBOW RT M3V (06/20/2024 2:06 PM MEDICAL AUDITOR) Anatomical Region Laterality Modality Elbow Radiographic Ana ging 06/20/2024 2:04 PM MEDICAL AUDITOR Impressions 06/20/2024 2:05 PM MEDICAL AUDITOR IMPRESSION: 1) No significant radiographic abnormality. Ordered By: DELILAH ORANTES Interpreted By: Tim Whitman MD, 06/20/2024 2:04 PM Narrative 06/20/2024 2:05 PM MEDICAL AUDITOR [address] [place] [address] Examination: XR ELBOW RT M3V Exam time: 06/20/2024 2:03 PM Clinical history: Trauma Comparison: None Technique: AP, lateral and oblique right elbow Findings: No soft tissue abnormality. No fat pad elevation. No evidence of acute fracture or dislocation. Joint spaces are well-maintained. Procedure Note Tim Whitman MD - 06/20/[address] [place] [address] Examination: XR ELBOW RT M3V Exam time: [...] 8:35 AM 11/05/2019 3:56 PM Care Teams Air Press Operator Relationship Specialty Start Date End Date Tye Conroy MD [address] [facility] [address] [place] [address] PCP - General FAMILY PRACTICE 01/11/18
== END 2024-07-07 15:15 | disposition home or self-care (01) ==
PROVIDERS: Emergency Provider Emergency Medicine; PCP Family Medicine
DX: M54.50 Low back pain, unspecified (principal); X50.0XXA Overexertion from strenuous movement or load, initial encounter
CPT/HCPCS: 72100; 99283